=== PATIENT | female | born 2000 ===

== ENCOUNTER 2020-06-27 19:46 | Outpatient (CLI) | payer OTHER ==
[2020-06-27] MEDS ORDERED: PRENATAL CAPLE1 EAC1 PO (20:10)
[2020-06-27] MEDS ORDERED: ASA81 MG PO (20:10)
== END 2020-06-28 14:18 | disposition home or self-care (01) ==
LOC: OBS/DEL 19:46
PROVIDERS: ATTEND Obstetrics & Gynecology
DX: O47.1 False labor at or after 37 completed weeks of gestation (principal)

== ENCOUNTER 2020-07-10 05:44 | Outpatient (CLI) | payer OTHER ==
[~2020-07-10 05:44] MED LIST: ASA81 MG PO; PRENATAL CAPLE1 EAC1 PO
== END 2020-07-10 13:28 | disposition home or self-care (01) ==
LOC: OBS/DEL 05:44
PROVIDERS: ATTEND Obstetrics & Gynecology
DX: O26.893 Other specified pregnancy related conditions, third trimester (principal); R10.2 Pelvic and perineal pain

== ENCOUNTER 2020-07-16 23:22 | Inpatient (IN) | payer OTHER ==
[~2020-07-16] VITALS: Ht 170.2 cm; Wt 121.6 kg
[2020-07-17] MEDS ORDERED: FOLIC ACID0.8 M1 PO (00:32)
[2020-07-17] MEDS ORDERED: ZINC50 M1 PO (00:32)
[2020-07-17] MEDS ORDERED: MAGNESIUM200 MG PO (00:33)
== END 2020-07-19 12:50 | disposition home or self-care (01) | DRG 805 ==
LOC: LDR 23:22
PROVIDERS: ADMIT Obstetrics & Gynecology; ATTEND Obstetrics & Gynecology
PROC: 10E0XZZ Delivery of Products of Conception, External Approach (ICD-10-PCS; principal; 2020-07-17)
PROC: 0KQM0ZZ Repair Perineum Muscle, Open Approach (ICD-10-PCS; 2020-07-17)
PROC: 4A1HXFZ Monitoring of Products of Conception, Cardiac Rhythm, External Approach (ICD-10-PCS; 2020-07-17)
PROC: 3E033VJ Introduction of Other Hormone into Peripheral Vein, Percutaneous Approach (ICD-10-PCS; 2020-07-17)
PROC: 8E0ZXY6 Isolation (ICD-10-PCS; 2020-07-17)
DX: O98.52 Other viral diseases complicating childbirth (principal); U07.1 COVID-19; Z37.0 Single live birth; Z3A.39 39 weeks gestation of pregnancy; O70.1 Second degree perineal laceration during delivery; Z20.822 Contact with and (suspected) exposure to COVID-19